=== PATIENT | male | born 1965 | race Caucasian/White ===

== ENCOUNTER 2018-04-08 10:42 | Observation (INO) ==
[2018-04-08] MEDS ORDERED: Metoprolol Tartrate 25 MG Tablet PO SCH (11:10)
[2018-04-08] MEDS ORDERED: Chlorhexidine Gluconate 2% 1 Pack (2 Cloths) TOPICAL SCH (11:10)
[2018-04-08] MEDS ORDERED: ceFAZolin 2 GM IV; once IV.SIG SCH (11:30)
[2018-04-08] MEDS ORDERED: Sodium Chlor 0.9% Inj 500 ML IV.SIG SCH (12:00)
[2018-04-08] MEDS ORDERED: Bupivacaine/Epinephrine PF Inj 0.5% 30 ML Vial ONE (12:39)
[2018-04-08] MEDS ORDERED: Thrombin Topical Soln 5,000 UNIT Vial TOPICAL ONE (12:40)
[2018-04-08] MEDS ORDERED: Gelatin Size 100 Topical Foam ONE (12:40)
[2018-04-08] MEDS ORDERED: methylPREDNISolone acetate 40 MG/ML VIAL ONE (12:40)
[2018-04-08] MEDS ORDERED: fentaNYL Citrate Inj 250 MCG/5 ML Ampul ONE (12:41)
[2018-04-08] MEDS ORDERED: Lidocaine PF 1% Inj 5 ML Syringe OTHER ONE (13:00)
[2018-04-08] MEDS ORDERED: Bisacodyl 10 MG Supp RECTAL PRN (14:56)
[2018-04-08] MEDS ORDERED: Morphine Inj 4 MG/ML Vial IV.PUSH PRN (14:56)
[2018-04-08] MEDS ORDERED: ceFAZolin 2 GM Premix Inj 2 GM/50 ML PIGGYBACK IV.SIG SCH (15:00)
--- NOTE | 2018-04-08 15:04 | P.OP ---
Preoperative Diagnosis: L4-5 recurrent disk herniation Postoperative Diagnosis: L4-5 recurrent disk herniation Date of procedure: 04/08/18 Procedure: Redo left L4-5 hemilaminectomy and microdiscectomy Anesthesia: JARRETA Surgeon: Shiraz Chino MD Women'S Garment Fitter: Josie Patel Pathology: none sent Operation and Findings: INDICATIONS FOR THE SURGICAL PROCEDURE Mr Reyes is a 53 year-old male with history of a prior lumbar laminectomy and microdiscectomy. He presented with intractable back pain and clinical evidence of left L5 lower extremity radiculopathy. He was found to have a large , recurrent disk herniation with significant stenosis with significant mass effect on the neural structures which correlated with the clinical symptoms. The patient has failed maximum nonsurgical management. A surgical decompression were indicated as a last resource. The [id number] details of the procedure, indications, alternatives, risks and potential complications were fully discussed with the patient. The patient fully understood. All the questions were answered. No guarantees were given. The patient voiced requesting the procedure and provided informed consents. The patient was offered the alternative of delaying the procedure and continuing with nonsurgical management. DETAILS OF THE SURGICAL PROCEDURE After the induction of general anesthesia, endotracheal intubation was performed. A Pickering catheter, bilateral FAY hose and sequential compression devices were placed and kept throughout the procedure. The patient was positioned prone on a Vijay table over a Pedro frame. All pressure points were carefully padded with eggcrate mattress. The eyes were tapped shut after ointment was applied by the anesthesiologist to prevent corneal abrasion. A Rocco hugger was placed over the exposed lower body to maintain control of the core body temperature. The lower lumbar region was prepped and draped in the usual sterile fashion. A spinal needle was placed for localization and an x- ray performed with a C-arm. A skin incision was made in the midline over the spinous processes L4-L5 with a #10 blade. Small subcutaneous bleeders were controlled with a bipolar and the dissection was carried out through the lumbar fascia exposing the spinous processes. A subperiosteal dissection was performed with a Rodarte elevator and a Bovie over the left spinous process lamina and facets. A microdiscectomy self- retaining retractor was placed on the incision and an x-ray was obtained with an instrument placed underneath the lamina. At this point in the procedure the operating microscope was draped in the usual sterile fashion and brought to the field. The rest of the surgical procedure was performed using microsurgical dissection technique with exception of the closure. Once the level was confirmed, the margins of the prior laminectomy were exposed. There was extensive scar tissue from the prior surgery. Once the bony margins were exposed, a laminectomy was performed extending slightly the prior opening using the TPS drill with an AM-8 drill bit. A medial facetectomy was performed and the superior free border of the ligamentum flavum was dissected with a ligament dissector and removed with a thin footplate 2 mm Kerrison. The scar tissue was carefully dissected from the dural sac and the L5 nerve root was identified and followed towards its exit in the foramen. A foraminotomy was done. Epidural veins located laterally to the dural sac were coagulated with a bipolar and incised with micro scissors. Gentle medial retraction of the dural sac allowed inspection of the disc space. The patient had a very large, recurrent disc herniation, causing mass effect over the exiting nerve root. The disc was coagulated with the bipolar. It was adherent to the surrounding neural structures and extra care was taken to free it from the scar tissue. The dura was very thing, and a small durotomy could not be avoided. The extruded disc was carefully dissected from the surrounding tissue and removed with pituitary forceps. Then, a microdiscectomy was carried out in the standard fashion using straight and up-biting pituitary forceps. A good decompression of the dural sac and nerve root was achieved. The exit of the nerve root was inspected for residual disc fragments and hemostasis was secured with the bipolar. The incision was irrigated with a large amount of saline solution. A Valsalva maneuver failed to show any cerebrospinal fluid leak or bleeding. The decompression was assessed again and found to be satisfactory. The incision was then closed in layers. The fascia was closed with 0 Vicryl sutures in an interrupted fashion. The superficial fascia was closed with 0 Vicryl sutures. The fascia was infiltrated with 0.5% Marcaine with epinephrine 1:100,000 dilution. The subcutaneous tissue was irrigated then closed with 0 Vicryl and 3 -0 Vicryl. The skin was closed with a 4-0 running Vycril. Dermabond was applied to the skin. A sterile dressing was applied. At the end of the procedure, the sponge, needle and instrument counts were all correct. Estimated blood loss was less than 60 cc. No blood transfusion was given. No intraoperative complications occurred. The patient received prophylactic antibiotics. The patient was then extubated and transferred to the recovery room in stable condition.
--- NOTE | 2018-04-08 15:13 | XR ---
EXAM DATE: 04/08/2018 12:00 AM EDT AGE/SEX: 53 years / Male INDICATIONS: Level localization for L4-5 lumbar laminectomy. CLINICAL DATA: This is the patient's initial encounter. Patient reports that signs and symptoms have been present for 1 day and indicates a pain score of Nonresponsive. MEDICAL/SURGICAL HISTORY: Non-responsive. Non-responsive. COMPARISON: No prior exams available for comparison. FINDINGS: A single lateral view of the lower lumbar spine was performed. A localization devices been placed pos teriorly at the second from the bottom disc space level which appears to be L4-L5. CONCLUSION: Level localization at L4-L5. Electronically signed by: Justin Wan MD 04/08/2018 3:11 PM EDT
[2018-04-08] MEDS ORDERED: HYDROmorphone PF Inj 2 MG/ML Vial ONE (15:15)
[2018-04-08] MEDS ORDERED: *morphine SULFATE 4 MG/ML PERIprocedure ONLY ONE (15:29)
[2018-04-08] MEDS ORDERED: Sodium Chloride 0.9% 2 ML Flush PRN IV.FLUSH (16:01)
[2018-04-08] MEDS: Sod Chloride 0.9% Inj 1,000 ML IV.CONT SCH (16:25)
[2018-04-08] MEDS: Senna/Docusate Sodium 8.6/50 MG Tablet PO SCH (20:54)
[2018-04-08] MEDS ORDERED: Sodium Chloride 0.9% 2 ML Flush BID IV.FLUSH SCH (21:00)
[2018-04-08] MEDS: ceFAZolin Inj 2,000 MG in Sodium Chlor 0.9% Inj 80 ML IV.SIG SCH (22:28)
[2018-04-08 22:40] VITALS: RESP 18
[2018-04-09] MEDS: Sod Chloride 0.9% Inj 1,000 ML IV.CONT SCH (01:42)
[2018-04-09] MEDS: ceFAZolin Inj 2,000 MG in Sodium Chlor 0.9% Inj 80 ML IV.SIG SCH (05:12)
[2018-04-09] MEDS: Senna/Docusate Sodium 8.6/50 MG Tablet PO SCH (10:09)
--- NOTE | 2018-04-09 11:09 | P.DS ---
Date of admission: 04/08/18 15:02 Primary care physician: Regan Castelan DO Brief History from admission: Mr Reyes is a 53 year-old male with history of a prior lumbar laminectomy and microdiscectomy. He presented with intractable back pain and clinical evidence of left L5 lower extremity radiculopathy. He was found to have a large , recurrent disk herniation with significant stenosis with significant mass effect on the neural structures which correlated with the clinical symptoms. DS: Medications - Discharge Medications Prescriptions: hydrocodone-acetaminophen 1 tab PO Q4-6H PRN #18 tab PRN Reason: Pain Scale 6 To 10 DS: Summary Hospital Course: Mr. Reyes underwent Redo left L4-5 hemilaminectomy and microdiscectomy for L4 -5 recurrent disk herniation on 04/08/18. He is discharged in stable conditions. - Time Spent with Patient Total time spent providing and/or coordinating discharge services: Less than 30 minutes - Quality: VTE Deep Vein Thrombosis/Pulmonary Embolism Present on Admission: No Exam Vital signs: Vital Signs 04/08/18 11:52 04/08/18 15:10 04/08/18 15:15 Temperature 97.4 F L 96.3 F L Pulse Rate 62 99 H 89 Respiratory Rate 20 20 20 Blood Pressure 133/85 135/80 168/77 H Pulse Oximetry 98 98 97 04/08/18 15:30 04/08/18 15:45 04/08/18 16:00 Temperature Pulse Rate 66 65 64 Respiratory Rate 16 16 15 Blood Pressure 157/80 H 153/93 H 149/84 H Pulse Oximetry 93 L 94 L 96 04/08/18 17:00 04/08/18 18:00 04/08/18 19:00 Temperature 98.3 F Pulse Rate 55 L 63 69 Respiratory Rate 14 19 17 Blood Pressure 137/92 H 144/81 H 139/80 Pulse Oximetry 94 L 94 L 96 04/08/18 20:00 04/08/18 23:28 04/09/18 02:54 Temperature 97.4 F L 97.4 F L 97.7 F Pulse Rate 65 62 64 Respiratory Rate 18 18 18 Blood Pressure 149/88 H 119/68 131/84 Pulse Oximetry 99 96 96 04/09/18 08:00 Temperature 98.3 F Pulse Rate 48 L Respiratory Rate 18 Blood Pressure 127/77 Pulse Oximetry 99 Intake & Output 1004/09/18 04/09/18 18:59 06:59 18:59 Intake Total 1500 / 1500 2655 / 2655 Output Total 30 / 30 0 / 0 Balance 1470 / 1470 2655 / 2655 Weight 66.8 kg 73.9 kg Intake: IV 1175 / 1175 NS Inj 1,000 ML @ 100 mls/hr IV 975 / 975 .CONT .Q10H VIVIANA Rx#:[id number] Ancef Inj 2,000 MG In NS Inj 80 200 / 200 ML @ 200 mls/hr IV.SIG Q8H VIVIANA Rx#:[id number] Oral 1480 / 1480 Anesthesia Amount 1500 / 1500 Output: Urine 0 / 0 Estimated Blood Loss Other: # Voids 3 Date of Last Bowel Movement 04/08/18 04/08/18 # Bowel Movements 0 Weight On Admission 66.8 kg Results Procedures completed during hospitalization: Redo left L4-5 hemilaminectomy and microdiscectomy - Impressions ITS Impressions Lumbar Spine X-Ray 04/08/18 00:00 CONCLUSION: Level localization at L4-L5. Discharge Plan - Discharge Disposition Patient Disposition: 01 Discharge Home - Discharge Condition Condition: Stable - Physicians Team Primary Care Provider: Regan Castelan Attending Provider: Shiraz Chino Other Providers: Pranay Chavarria MD, PhD - Rxs /Orders / Referrals /Forms Prescriptions: New hydrocodone-acetaminophen 10-325 mg Tablet 1 tab PO Q4-6H PRN (Reason: Pain Scale 6 To 10) Qty: 18 RF: 0 Continue naproxen sodium [Aleve] 220 mg Tablet 440 mg PO DAILY Referrals: Regan Castelan DO [Primary Care Provider] - See Instructions - Discharge Instructions Patient Printed Instructions: Laminectomy (DC)
[2018-04-09 12:27] VITALS: BP 143/63; PULSE 50; TEMP 97.7; O2SAT 97
== END 2018-04-09 15:40 | disposition home or self-care (01) ==
LOC: HSDC 10:42 → HSDI 10:42 → N06 19:45
PROVIDERS: ADMIT Neurological Surgery; ATTEND Neurological Surgery